=== PATIENT | female | born 1975 | race American Indian/Alaskan Native ===

== ENCOUNTER 2018-11-27 18:26 | Inpatient (IN) | payer OTHER ==
[2018-11-27] MEDS ORDERED: SODIUM CHLORIDE FLUSH SYRINGE 10 ML IV PRN (18:39)
[2018-11-27] MEDS ORDERED: NACL 0.9% 500 ML 500 ML IV NR (20:00)
--- NOTE | 2018-11-27 20:43 | History and Physical Report ---
History of Present Illness Date of examination: 11/27/18 Date of admission: 11/27/18 19:54 Chief complaint: symptomatic anemai History of present illness: 43 y/o lady seen in our office 11/25/18. Blood work ordered. Result came, showing severe anemia with Hgb of 3.8 and Hct 14.3. Patient admits to having palpitations and fatigue. Denies any chest pain but easily fatigued. Has a history of chronic anemia. Denies any bleeding diasthesis, hematemesis or melena. Has history of menorrahgia for many years. Anmeia w/u was remarkable for low iron level of 10 and low ferritin. TIBC is on high level of normal Past History Past Medical History: anemia Medications and Allergies Allergies Allergy/AdvReac Type Severity Reaction Status Date / Time No Known Allergies Allergy Unverified 11/27/18 18:39 Home Medications Medication Instructions Recorded Confirmed Last Taken Type High Potency Iron 27 MG 300 mg PO QDAY 11/28/18 11/28/18 1 Day Ago History ~11/27/18 Active Meds: Active Medications Ferrous Gluconate (Fergon) 324 mg PO BID IKZZY Sodium Chloride (Nacl 0.9% 500 Ml) 500 mls @ 0 mls/hr IV ONCE NR Stop: 11/28/18 19:00 Sodium Chloride (Sodium Chloride Flush Syringe 10 Ml) 10 ml IV BID KIZZY Sodium Chloride (Sodium Chloride Flush Syringe 10 Ml) 10 ml IV PRN PRN PRN Reason: LINE FLUSH Review of Systems ROS unobtainable: due to endotracheal tube Constitutional: fatigue, no fever, no chills, no sweats Ears, nose, mouth and throat: no ear pain, no ear discharge, no tinnitis, no nose pain Breasts: no normal, no change in shape, no swelling Cardiovascular: no chest pain, no orthopnea, no palpitations Respiratory: shortness of breath, no cough, no excessive sputum, no hemoptysis Gastrointestinal: no abdominal pain, no nausea, no vomiting, no diarrhea Genitourinary Female: no flank pain, no menorrhagia Rectal: no incontinence, no bleeding Integumentary: no rash, no pruritis, no redness Neurological: no head injury, no transient paralysis, no paralysis, no weakness Psychiatric: no anxiety, no memory loss, no change in sleep habits, no sleep disturbances, no insomnia Endocrine: no cold intolerance, no heat intolerance, no polyphagia, no excessive thirst Hematologic/Lymphatic: no easy bruising, no easy bleeding Allergic/Immunologic: no urticaria, no allergic rhinitis Exam - Constitutional General appearance: Present: no acute distress, mild distress - EENT Eyes: Present: PERRL, EOM intact ENT: hearing intact, clear oral mucosa - Neck Neck: Present: supple - Respiratory Respiratory: bilateral: CTA - Cardiovascular Rhythm: regular Heart Sounds: Present: S1 & S2 - Extremities Extremities: no ischemia, pulses intact, pulses symmetrical - Abdominal General gastrointestinal: Present: soft, non-tender, tender - Integumentary Integumentary: Present: clear, warm, dry - Musculoskeletal Musculoskeletal: strength equal bilaterally - Neurologic Neurologic: CNII-XII intact Results - Labs CBC & Chem 7: 11/27/18 20:37 11/27/18 20:37 Assessment and Plan - Symtomatic anemia Hgb 3.8 TIBC, B12 folic acid, ferritin, Transfuse 2 units of PRBC - Palpitaion EKG - Menorrhagia Pelvic UC DVT PPX: with scd only. Avoid anticoagulation b/c anemia Advance care directive: Pt is Full code
[2018-11-27 20:53] LABS: Basophils # (Auto) 0.1 K/mm3 (0.0-0.1); Basophils % (Auto) 0.9 % (0.0-1.8); Eosinophils # (Auto) 0.1 K/mm3 (0.0-0.4); Eosinophils % (Auto) 1.4 % (0.0-4.3); Lymphocytes # (Auto) 2.2 K/mm3 (1.2-5.4); Lymphocytes % (Auto) 23.8 % (13.4-35.0); Mean Corpuscular HGB Conc 29 % (30-34); Mean Corpuscular Volume 73 fl (79-97); Monocytes # (Auto) 0.6 K/mm3 (0.0-0.8); Monocytes % (Auto) 6.6 % (0.0-7.3); Platelet Count 581 K/mm3 (140-440)
[2018-11-27 21:06] LABS: Hematocrit 13.9 % (30.3-42.9); Red Cell Distribution Width 24.9 % (13.2-15.2)
[2018-11-27 21:07] LABS: INR 1.07 (0.87-1.13)
[2018-11-27 21:08] LABS: Partial Thromboplastin Time 22.7 Sec. (24.2-36.6)
[2018-11-27 21:15] LABS: Iron 10 ug/dL (37-170)
[2018-11-27 21:18] LABS: Total Iron Binding Capacity 404 mcg/dL (250-450)
[2018-11-27 21:20] LABS: Alanine Aminotransferase 24 units/L (7-56); Albumin 4.1 g/dL (3.9-5); BUN/Creatinine Ratio 9; Blood Urea Nitrogen 8 mg/dL (7-17); Calcium 9.5 mg/dL (8.4-10.2); Hemolysis Index 0
[2018-11-27] MEDS ORDERED: FERGON PO SCH (22:00)
[2018-11-27] MEDS: SODIUM CHLORIDE FLUSH SYRINGE 10 ML IV SCH (23:07)
[2018-11-27] MEDS: FERROUS SULFATE PO SCH (23:07)
[2018-11-27] MEDS: ROBITUSSIN PO PRN (23:07)
[2018-11-28] MEDS: ROBITUSSIN PO PRN ×2 (03:21→10:53)
--- NOTE | 2018-11-28 08:57 | Progress Note ---
Assessment and Plan - Severe symptomatic iron def. anemia Hgb 4.0 TIBC Nl, B12 and folic acicd, Low iron and ferritin levels Having second unit of PRBC - Palpitation EKG - Menorrhagia Pelvic UC DVT PPX: with scd only. Avoid anticoagulation b/c anemia Advance care directive: Pt is Full code Subjective Date of service: 11/28/18 Principal diagnosis: severe symptomatically anemia, palpitation, menorrhagia. Interval history: Patient seen and examined. Denies any chest pain or shortness of breath. Objective - Exam Narrative Exam: Constitutional: Well-nourished well-developed. In no distress Head: Normocephalic atraumatic Eyes: Conjunctiva pallor. Pupils are equal round and reactive to light Nose: No enlarged turbinates, no septal deviation. Mouth: Moist mucous membranes. Neck: Supple no thyromegaly. No bruit. No JVD Heart: Regular rate and rhythm, S1-S2 normal. No rubs murmurs or gallop Lungs: Clear to auscultation bilaterally. no rales or rhonchi Abdomen: Soft, nontender. Bowel sound are present. Extremities: No edema, no cyanosis, no clubbing. Neuro: Alert oriented Oriented x3. No focal sensory or motor deficit. Skin: No rashes or hyperpigmented spots Musculoskeletal system: No joint pain or swelling Hematological: No petechia or subcutanous hemorrhages. Immunological: No multiple septic spots on the skin Lymphatic: No generalized lymphadenopathy Psychiatry: Euthymic. Calm. - Constitutional Vitals: Vital Signs - 12hr 11/27/18 11/27/18 11/28/18 21:03 21:22 00:09 Temperature 98.3 F 98.1 F Pulse Rate 106 H 100 H 103 H Respiratory 12 16 Rate Blood Pressure 123/76 111/70 O2 Sat by Pulse 100 100 Oximetry 11/28/18 11/28/18 11/28/18 00:15 00:30 01:00 Temperature 98.1 F 98.4 F 98.4 F Pulse Rate 107 H 106 H 108 H Respiratory 16 16 16 Rate Blood Pressure 111/70 126/74 108/67 O2 Sat by Pulse 100 100 99 Oximetry 11/28/18 11/28/18 11/28/18 01:30 02:00 02:30 Temperature 98.2 F 98.3 F 98.3 F Pulse Rate 98 H 102 H 94 H Respiratory 16 16 16 Rate Blood Pressure 119/79 109/86 108/71 O2 Sat by Pulse 93 98 96 Oximetry 11/28/18 11/28/18 11/28/18 03:05 03:15 03:30 Temperature 98.3 F 98.3 F 98.2 F Pulse Rate 92 H 92 H 97 H Respiratory 16 16 18 Rate Blood Pressure 117/82 117/82 123/81 O2 Sat by Pulse 100 100 92 Oximetry 11/28/18 11/28/18 11/28/18 04:00 04:30 05:00 Temperature 98.6 F 98.4 F 98.2 F Pulse Rate 86 95 H 80 Respiratory 16 16 16 Rate Blood Pressure 116/76 100/85 122/76 O2 Sat by Pulse 97 96 100 Oximetry 11/28/18 05:32 Temperature 98.6 F Pulse Rate 80 Respiratory 16 Rate Blood Pressure 116/69 O2 Sat by Pulse 95 Oximetry - Labs CBC & Chem 7: 11/27/18 20:37 11/27/18 20:37 Labs: Abnormal lab results 11/27/18 11/27/18 11/27/18 Range/Units 20:37 20:37 20:37 RBC 1.90 L (3.65-5.03) M/mm3 Hgb 4.0 L* (10.1-14.3) gm/dl Hct 13.9 L* (30.3-42.9) % MCV 73 L (79-97) fl MCH 21 L (28-32) pg MCHC 29 L (30-34) % RDW 24.9 H (13.2-15.2) % Plt Count 581 H (140-440) K/mm3 APTT 22.7 L (24.2-36.6) Sec. Carbon Dioxide 21 L (22-30) mmol/L Glucose 101 H (65-100) mg/dL Iron (37-170) ug/dL Ferritin (13.0-400.0) ng/mL Vitamin B12 (211-911) pg/mL Crossmatch 11/27/18 11/27/18 11/27/18 Range/Units 20:37 20:37 20:37 RBC (3.65-5.03) M/mm3 Hgb (10.1-14.3) gm/dl Hct (30.3-42.9) % MCV (79-97) fl MCH (28-32) pg MCHC (30-34) % RDW (13.2-15.2) % Plt Count (140-440) K/mm3 APTT (24.2-36.6) Sec. Carbon Dioxide (22-30) mmol/L Glucose (65-100) mg/dL Iron 10 L (37-170) ug/dL Ferritin 11.6 L (13.0-400.0) ng/mL Vitamin B12 925.4 H (211-911) pg/mL Crossmatch 11/27/18 Range/Units 20:41 RBC (3.65-5.03) M/mm3 Hgb (10.1-14.3) gm/dl Hct (30.3-42.9) % MCV (79-97) fl MCH (28-32) pg MCHC (30-34) % RDW (13.2-15.2) % Plt Count (140-440) K/mm3 APTT (24.2-36.6) Sec. Carbon Dioxide (22-30) mmol/L Glucose (65-100) mg/dL Iron (37-170) ug/dL Ferritin (13.0-400.0) ng/mL Vitamin B12 (211-911) pg/mL Crossmatch See Detail
[2018-11-28 09:21] LABS: Basophils % (Auto) 0.5 % (0.0-1.8); Eosinophils # (Auto) 0.1 K/mm3 (0.0-0.4); Eosinophils % (Auto) 1.7 % (0.0-4.3); Hematocrit 22.2 % (30.3-42.9); Lymphocytes # (Auto) 1.2 K/mm3 (1.2-5.4); Lymphocytes % (Auto) 13.5 % (13.4-35.0); Mean Corpuscular HGB Conc 32 % (30-34); Mean Corpuscular Volume 77 fl (79-97); Monocytes # (Auto) 0.6 K/mm3 (0.0-0.8); Monocytes % (Auto) 6.9 % (0.0-7.3); Platelet Count 532 K/mm3 (140-440); Red Blood Count 2.86 M/mm3 (3.65-5.03)
[2018-11-28 09:22] LABS: Red Cell Distribution Width 22.7 % (13.2-15.2)
[2018-11-28 09:44] LABS: Alanine Aminotransferase 20 units/L (7-56); Albumin 3.6 g/dL (3.9-5); BUN/Creatinine Ratio 8; Blood Urea Nitrogen 6 mg/dL (7-17); Calcium 9.2 mg/dL (8.4-10.2); Hemolysis Index 3
[2018-11-28] MEDS ORDERED: HIGH POTENCY IRON PO SCH (10:00)
[2018-11-28] MEDS: FERROUS SULFATE PO SCH (10:53)
[2018-11-28] MEDS: SODIUM CHLORIDE FLUSH SYRINGE 10 ML IV SCH (10:54)
--- NOTE | 2018-11-28 13:01 | Ultrasound Report ---
ULTRASOUND PELVIC COMPLETE HISTORY: Menorrhagia. COMPARISON: None. TECHNIQUE: Transabdominal and transvaginal ultrasound with color doppler interrogation. FINDINGS: Uterus: The uterus is anteverted. The uterus is enlarged and heterogeneous and contains multiple fibroids. The uterus measures 14.4 x 6.2 x 6.4 cm. The largest fibroids at the uterine fundus measuring 4.2 x 3.7 x 3.7 cm. An intramural fibroid in the posterior wall measures 2.1 x 1.9 x 1.6 cm. This may have a small submucosal component. There are 2 intramural fibroids in the anterior wall measuring 1.7 cm and 2.2 cm. Endometrium: 11 mm. There is mild anterior bowing of the endometrium. Right ovary: Not visualized. Left ovary: 4.5 x 4.0 x 3.3 cm. A 3.4 x 2.8 x 2.6 cm simple cyst is identified in the left ovary. No pelvic fluid or mass is identified. Normal color doppler interrogation. IMPRESSION: Uterine fibroid disease as outlined above. Left ovarian cyst. The right ovary is not visualized.
[2018-11-28 13:46] VITALS: BP 142/91
--- NOTE | 2018-11-28 14:37 | Discharge Summary ---
Providers - Providers Date of Admission: 11/27/18 19:54 Date of discharge: 11/28/18 Attending physician: RAY RODRIGUEZ none Primary care physician: RAY RODRIGUEZ Hospitalization Reason for admission: severe symptomatic anemia Pertinent studies: CBC CMP, pelvic ultrasound that showed multiple uterine fibroid mellitus measuring 4.2 x 3.7 cm EKG shows normal sinus rhythm Procedures: none Hospital course: 43 y/o lady seen in our office 11/25/18. Blood work ordered. Result came, showing severe anemia with Hgb of 3.8 and Hct 14.3. Patient admits to having palpitations and fatigue. Denies any chest pain but easily fatigued. Has a history of chronic anemia. Denies any bleeding diasthesis, hematemesis or melena. Has history of menorrahgia for many years. Anemeia w/u was remarkable for low iron level of 10 and low ferritin. TIBC is on high level of normal. Had 2 units of packed red blood cell transfusion. Hemoglobin improved to 7.0. Blood pressure improvement. Pelvic ultrasound shows multiple uterine fibroids largest measuring 4.3 x 2.7 cm the fundus. Present admission was commenced on iron supplements. Heart slight metabolic acidosis that improved with blood transfusion. Therefore been discharged to follow-up with primary care physician in 3-5 days and the natural resources instructor in 1 week for possible surgical management of uterine fibroids as pt does not want any more babies. Disposition: DC-01 TO HOME OR SELFCARE Time spent for discharge: 35 mins - Discharge Diagnoses (1) Severe anemia Status: Acute (2) Palpitation Status: Acute (3) Iron deficiency anemia Status: Acute (4) Menorrhagia Status: Acute (5) Uterine fibroid Status: Acute Core Measure Documentation - Palliative Care Palliative Care/ Comfort Measures: Not Applicable - Core Measures Any of the following diagnoses?: none Exam - Physical Exam Narrative exam: Constitutional: Well-nourished well-developed. In no distress Head: Normocephalic atraumatic Eyes: Conjunctiva pallor improved. Pupils are equal round and reactive to light Nose: No enlarged turbinates, no septal deviation. Mouth: Moist mucous membranes. Neck: Supple no thyromegaly. No bruit. No JVD Heart: Regular rate and rhythm, S1-S2 normal. No rubs murmurs or gallop Lungs: Clear to auscultation bilaterally. no rales or rhonchi Abdomen: Soft, nontender. Bowel sound are present. Extremities: No edema, no cyanosis, no clubbing. Neuro: Alert oriented Oriented x3. No focal sensory or motor deficit. Skin: No rashes or hyperpigmented spots Musculoskeletal system: No joint pain or swelling Hematological: No petechia or subcutanous hemorrhages. Immunological: No multiple septic spots on the skin Lymphatic: No generalized lymphadenopathy Psychiatry: Euthymic. Calm. - Constitutional Vitals: Temp Pulse Resp BP Pulse Ox 97.4 F L 86 18 142/91 99 11/28/18 12:58 11/28/18 12:58 11/28/18 12:58 11/28/18 12:58 11/28/18 12:58 Plan Activity: advance as tolerated Weight Bearing Status: Weight Bear as Tolerated Diet: regular Follow up with: OMID BRUCE MD [Staff Physician] - 7 Days RAY RODRIGUEZ MD [Primary Care Provider] - 12/02/18 Prescriptions: Ferrous Sulfate [Ferrous Sulfate 220 MG/5 ML] 220 mg PO BID #200 solution guaiFENesin [Robitussin] 200 mg PO Q4H PRN #200 oral.liqd PRN Reason: Cough Ascorbic Acid/Ascorbate Sodium [Vit C-Cami Hips 500 mg Chew Tb] 500 mg PO QDAY #30 tab.chew
[2018-11-29] MEDS ORDERED: HIGH POTENCY IRON PO SCH (10:00)
== END 2018-11-28 16:10 | disposition home or self-care (01) | DRG 760 ==
LOC: 4A 18:26 → UNDOADMIN 18:26 → 4A 19:54
PROVIDERS: ADMIT Family Medicine; ATTEND Family Medicine
PROC: 30233N1 Transfusion of Nonautologous Red Blood Cells into Peripheral Vein, Percutaneous Approach (ICD-10-PCS; principal; 2018-11-28)
DX: D25.9 Leiomyoma of uterus, unspecified (principal); E87.2 Acidosis; D50.9 Iron deficiency anemia, unspecified; N92.0 Excessive and frequent menstruation with regular cycle; R00.2 Palpitations
CPT/HCPCS: 36415; 76856; 80053; 82607; 82728; 82747; 83550; 83735; 84100; 84443; 85025; 85610; 85730; 86850; 86900; 86901; 86920; 93005; 93010; G0378; J3246; J7040; P9016